=== PATIENT | female | born 1960 | race American Indian/Alaskan Native ===

== ENCOUNTER 2016-04-19 21:07 | Inpatient (IN) | payer MEDICAID ==
[2016-04-19 22:24] LABS: Basophils % (Auto) 1.9 % (0.0-1.8); Hematocrit 37.8 % (30.3-42.9); Mean Corpuscular HGB Conc 32 % (30-34); Mean Corpuscular Volume 76 fl (79-97); Platelet Count 413 K/mm3 (140-440); Red Blood Count 4.96 M/mm3 (3.65-5.03); Red Cell Distribution Width 17.6 % (13.2-15.2); White Blood Count 9.7 K/mm3 (4.5-11.0)
[2016-04-19 22:25] LABS: BUN/Creatinine Ratio 8.62; Calcium 9.2 mg/dL (8.4-10.2); Potassium 3.3 mmol/L (3.6-5.0)
[2016-04-19 22:29] LABS: Mean Corpuscular Hemoglobin 24 pg (28-32)
[2016-04-20] MEDS ORDERED: DUONEB 0.5 MG-3 MG/3 ML SOLN IH ONE ×2 (06:40→19:44)
--- NOTE | 2016-04-20 08:07 | Emergency Department Report ---
ED Shortness of Breath HPI - General Chief Complaint: Dyspnea/Respdistress Stated Complaint: SOB/CHILLS/HEART PT Time Seen by Provider: 04/20/16 08:04 Source: patient Mode of arrival: Ambulatory Limitations: No Limitations - History of Present Illness Initial Comments: Patient states that she's had some white productive sputum over the past 2 days. She denies chest pain. She complains of shortness of breath. She was given a neb here with some benefit. History of chronic renal failure. She states that she took her medicines but admitted that she did not take her Lasix yesterday her compliance is really uncertain in general. She denies any recent fever. As some dysuria and thinks she may have a UTI. MD Complaint: shortness of breath -: days(s) Improves With: nothing Worsens With: nothing Known History Of: COPD, congestive heart failure Context: recent URI Associated Symptoms: denies other symptoms, other (left leg edema and dysuria) - Related Data Home Oxygen Therapy: No Home Medications Medication Instructions Recorded Confirmed Last Taken Aspirin [Aspirin BABY CHEW TAB] 81 mg PO QHS 12/13/13 04/19/16 11/09/15 Cyclobenzaprine [Flexeril 10 MG 10 mg PO QHS 12/13/13 04/19/16 Unknown TAB] Nitroglycerin [Nitrostat] 0.4 mg SL Q5M PRN 12/13/13 04/19/16 Unknown Fluticasone/Salmeterol [Advair 250 puff PO BID 04/21/15 04/19/16 11/09/15 Diskus 250-50 mcg] Oxybutynin [Ditropan] 5 mg PO QDAY 04/21/15 04/19/16 11/10/15 cloNIDine [Catapres] 0.1 mg PO QDAY 04/21/15 04/19/16 11/10/15 cloNIDine [Catapres] 0.2 mg PO QHS 04/21/15 04/19/16 11/09/15 Montelukast [Singulair] 10 mg PO QPM 04/22/15 04/19/16 11/09/15 amLODIPine [Norvasc] 5 mg PO DAILY 04/22/15 04/19/16 11/10/15 Furosemide [Lasix TAB] 40 mg PO QHS 11/10/15 04/19/16 11/09/15 Potassium Chloride [K-Dur] 20 meq PO QHS 11/10/15 04/19/16 11/09/15 Previous Rx's Medication Instructions Recorded Last Taken Type hydrALAZINE [Apresoline TAB] 100 mg PO TID #90 tab 12/15/13 11/10/15 Rx ISOSORBIDE MONOnitrate [Imdur ER] 30 mg PO QDAY #30 tablet 04/25/15 11/10/15 Rx Metoprolol [Lopressor TAB] 50 mg PO BID #60 tablet 04/25/15 11/10/15 Rx Simvastatin [Zocor TAB] 40 mg PO QHS #30 tablet 04/25/15 11/09/15 Rx traMADol [Ultram] 50 mg PO Q6HR PRN #20 tablet 11/10/15 Unknown Rx Allergies Allergy/AdvReac Type Severity Reaction Status Date / Time No Known Allergies Allergy Unverified 08/30/13 18:56 ED Review of Systems ROS: Stated complaint: SOB/CHILLS/HEART PT Other details as noted in HPI Constitutional: denies: chills, fever Eyes: denies: eye pain, eye discharge, vision change ENT: denies: ear pain, throat pain Respiratory: cough, shortness of breath. denies: wheezing Cardiovascular: edema. denies: chest pain, palpitations Endocrine: no symptoms reported Gastrointestinal: denies: abdominal pain, nausea, diarrhea Genitourinary: denies: urgency, dysuria, discharge Musculoskeletal: denies: back pain, joint swelling, arthralgia Skin: denies: rash, lesions Neurological: denies: headache, weakness, paresthesias Psychiatric: denies: anxiety, depression Hematological/Lymphatic: denies: easy bleeding, easy bruising ED Past Medical Hx - Past Medical History Hx Hypertension: Yes Hx Congestive Heart Failure: Yes Hx Diabetes: No Hx Renal Disease: Yes Hx Asthma: Yes Hx COPD: No Additional medical history: CAD - Surgical History Additional Surgical History: Knee surgery - Social History Smoking Status: Former Smoker Substance Use Type: None - Medications Home Medications: Home Medications Medication Instructions Recorded Confirmed Last Taken Type Aspirin [Aspirin BABY CHEW TAB] 81 mg PO QHS 12/13/13 04/19/16 11/09/15 History Cyclobenzaprine [Flexeril 10 MG 10 mg PO QHS 12/13/13 04/19/16 Unknown History TAB] Nitroglycerin [Nitrostat] 0.4 mg SL Q5M PRN 12/13/13 04/19/16 Unknown History hydrALAZINE [Apresoline TAB] 100 mg PO TID #90 tab 12/15/13 04/19/16 11/10/15 Rx Fluticasone/Salmeterol [Advair 250 puff PO BID 04/21/15 04/19/16 11/09/15 History Diskus 250-50 mcg] Oxybutynin [Ditropan] 5 mg PO QDAY 04/21/15 04/19/16 11/10/15 History cloNIDine [Catapres] 0.1 mg PO QDAY 04/21/15 04/19/16 11/10/15 History cloNIDine [Catapres] 0.2 mg PO QHS 04/21/15 04/19/16 11/09/15 History Montelukast [Singulair] 10 mg PO QPM 04/22/15 04/19/16 11/09/15 History amLODIPine [Norvasc] 5 mg PO DAILY 04/22/15 04/19/16 11/10/15 History ISOSORBIDE MONOnitrate [Imdur ER] 30 mg PO QDAY #30 tablet 04/25/15 04/19/1605/22 Rx Metoprolol [Lopressor TAB] 50 mg PO BID #60 tablet 04/25/15 04/19/16 11/10/15 Rx Simvastatin [Zocor TAB] 40 mg PO QHS #30 tablet 04/25/15 04/19/16 11/09/15 Rx Furosemide [Lasix TAB] 40 mg PO QHS 11/10/15 04/19/16 11/09/15 History Potassium Chloride [K-Dur] 20 meq PO QHS 11/10/15 04/19/16 11/09/15 History traMADol [Ultram] 50 mg PO Q6HR PRN #20 tablet 11/10/15 04/19/16 Unknown Rx ED Physical Exam - General Limitations: No Limitations General appearance: obese (morbidly obese) - Head Head exam: Present: atraumatic - Eye Eye exam: Present: normal appearance - ENT ENT exam: Present: mucous membranes moist - Neck Neck exam: Present: normal inspection - Respiratory Respiratory exam: Present: decreased breath sounds. Absent: respiratory distress, accessory muscle use - Cardiovascular Cardiovascular Exam: Present: regular rate, normal rhythm. Absent: systolic murmur, diastolic murmur, rubs, gallop - GI/Abdominal GI/Abdominal exam: Present: soft, normal bowel sounds. Absent: distended, tenderness, guarding, rebound, rigid - Extremities Exam Extremities exam: Present: other (bilateral leg edema) - Back Exam Back exam: Present: normal inspection - Neurological Exam Neurological exam: Present: alert. Absent: CN II-XII intact, motor sensory deficit - Psychiatric Psychiatric exam: Present: normal affect, normal mood - Skin Skin exam: Present: warm, dry, intact, normal color. Absent: rash ED Course Vital Signs 04/19/16 04/20/16 04/20/16 21:33 06:13 06:46 Temperature 99.1 F 99.9 F H Pulse Rate 82 84 Pulse Rate [ 83 Anterior Bilateral Throughout] Respiratory 22 26 H 30 H Rate Respiratory 28 H Rate [Anterior Bilateral Throughout] Blood Pressure 199/112 Blood Pressure 163/89 [Left] O2 Sat by Pulse 95 96 Oximetry - Reevaluation(s) Reevaluation #1: Given Lasix, nitrates, potassium, aspirin. Discussed with Dr. Humphries. The patient will be admitted to the hospital service. 04/20/16 09:27 ED Medical Decision Making - Lab Data Result diagrams: 04/19/16 21:53 04/19/16 21:53 Laboratory Results - last 24 hr 04/19/16 04/19/16 21:53 21:53 WBC 9.7 RBC 4.96 Hgb 12.0 Hct 37.8 MCV 76 L MCH 24 L MCHC 32 RDW 17.6 H Plt Count 413 Lymph % (Auto) 5.1 L [place] % (Auto) 5.3 Eos % (Auto) 2.0 Baso % (Auto) 1.9 H Lymph # 0.5 L [place] # 0.5 Eos # 0.2 Baso # 0.2 H Seg Neutrophils % 85.7 H Seg Neutrophils # 8.4 H Sodium 143 Potassium 3.3 L Chloride 100.0 Carbon Dioxide 26 Anion Gap 20 BUN 25 H Creatinine 2.9 H Estimated GFR 20 BUN/Creatinine Ratio 8.62 Glucose 96 Calcium 9.2 Troponin T 0.020 - EKG Data -: EKG Interpreted by Me EKG shows normal: sinus rhythm Rate: normal - EKG Data When compared to previous EKG there are: no significant change Interpretation: LVH (associated changes) - Radiology Data interpreted by me: X-ray cardiomegaly and CHF. Critical care attestation.: If time is entered above; I have spent that time in minutes in the direct care of this critically ill patient, excluding procedure time. ED Disposition Clinical Impression: Asthma exacerbation, Chronic kidney disease, stage III (moderate), Poorly- controlled hypertension CHF (congestive heart failure) Qualifiers: Congestive heart failure type: combined Congestive heart failure chronicity: acute on chronic Qualified Code(s): I50.43 - Acute on chronic combined systolic (congestive) and diastolic (congestive) heart failure Disposition: OP ADMITTED IP TO THIS HOSP Is pt being admited?: Yes Does the pt Need Aspirin: Yes Condition: Stable Referrals: ELISE SOLORZANO MD [Primary Care Provider] - 3-5 Days Time of Disposition: 09:27
[2016-04-20] MEDS ORDERED: K-DUR PO ONE (08:46)
[2016-04-20] MEDS ORDERED: NITRO-BID 2% TP ONE (08:46)
[2016-04-20] MEDS ORDERED: LASIX IV ONE ×2 (08:46→16:43)
[2016-04-20] MEDS ORDERED: ASPIRIN PO ONE (08:47)
--- NOTE | 2016-04-20 09:14 | Admit Criteria Form ---
Admission Criteria Documentation: HEART FAILURE: COMMON COMPLICATIONS Clinical Indications for Inpatient Care (Place 'X' for any and all applicable criteria): Ongoing inpatient care may be indicated for heart failure with ANY ONE of the following (1)(2)(3)(4)(5): [ ]I. Ongoing need for care for primary condition requiring frequent therapy adjustments because of changes in cardiac function (eg, drug dosage changes for drugs that are renally metabolized) [ ]II. New-onset heart failure [ ]III. Heart failure with decreased urine output not responsive to attempts to optimize volume status [ ]IV. Acute cardiac ischemia causing or associated with failure [ X]V. Complications of heart failure, including ANY ONE of the following: [ ]a) Pericardial effusion [ ]b) Symptomatic pleural effusion [ ]c) O2 saturation <90% or PO2 < 60 mm Hg (8.0 kPa) on room air or require baseline supplemental O2 [ ]d) Tachypnea [X ]e) Dyspnea [ ]f) Syncope [ ]g) Change in mental status [ ]h) Acute renal insufficiency that is severe (reduction of more than 50% in estimated glomerular filtration rate from baseline) or progressive reduction of more than 25% in estimated glomerular filtration rate from baseline, with creatinine continuing to rise) [ ]i) Hemodynamic instability [ ]j) Anasarca [ ]k) Clinically significant metabolic abnormalities due to heart failure (eg, new-onset metabolic acidosis) Extended stay beyond goal length of stay for primary condition may be needed until ALL of the following are present(1)(3): [ ]a) Stable and effective diuretic regimen established (or patient on stable dialysis regimen if in chronic renal failure) [ ]b) Breathing comfortably at rest [ ]c) Saturation of arterial oxygen greater than 90% or at acceptable baseline [ ]d) Pulmonary edema absent or improved [ ]e) Hemodynamic stability [ ]f) Volume status acceptable on oral medication [ ]g) Peripheral or sacral edema absent or improved [ ]h) Renal function stable and manageable at a lower level of care [ ]i) Complications (eg, pleural effusion) resolved or manageable at a lower level of care [ ]j) Patient or caregiver has received written discharge instructions or educational material addressing activity level, diet, discharge medications, follow-up appointment, weight monitoring, and what to do if symptoms worsen The original [facility] [employer] content created by [employer] has been revised. The portions of the content which have been revised are identified through the use of italic text or in bold, and [facility] has neither reviewed nor approved the modified material.All other unmodified content is copyright [facility]. Please see references footnoted in the original [facility] edition 2016
--- NOTE | 2016-04-20 09:33 | XRay Report ---
CHEST TWO VIEWS: 04/19/16 21:07:00 CLINICAL: Shortness of breath. COMPARISON: 04/20/15 FINDINGS: Cardiomegaly and central vascular congestion. The lungs are normally expanded and clear. The bones and soft tissues are normal. IMPRESSION: Cardiomegaly and pulmonary venous hypertension.No pulmonary edema.
[2016-04-20] MEDS ORDERED: MILK OF MAGNESIA PO PRN (10:14)
[2016-04-20] MEDS ORDERED: ZOFRAN IV PRN (10:14)
[2016-04-20] MEDS ORDERED: DULCOLAX PR PRN (10:14)
[2016-04-20] MEDS ORDERED: ULTRAM PO PRN (10:18)
[2016-04-20] MEDS ORDERED: NITROSTAT SL PRN (10:18)
--- NOTE | 2016-04-20 10:26 | History and Physical Report ---
History of Present Illness Date of examination: 04/20/16 Date of admission: 11-18-16 Chief complaint: sob and cough History of present illness: Patient is a 55-year-old female with a past medical history including hypertension, congestive heart failure, coronary artery disease, asthma, hyperlipidemia, morbid obesity, sleep apnea, visits with a 5 day history of shortness of breath and productive cough and wheezing. Patient states symptoms have been progressively getting worse over the last 3 days. Associated with low -grade fever and pursed lip breathing. Patient at present is unaware of any recent trigger. She denies any immediate sick contacts but has been near possible sick contacts in her work environment. Patient state he begin to get more more short of breath and decided to come to the ED. Once patient arrived in the ED she felt better with oxygen and nebulizers. Patient was noted to have malignant hypertension with blood pressure 190/120 upon presentation. She denied any chest pain. He did complain of dyspnea on exertion. Painful cough. Productive cough. Arthralgia and myalgias low-grade fever. Past History Past Medical History: arthritis, heart failure, hypertension Social history: single, lives with family, full code. denies: smoking, alcohol abuse, prescription drug abuse Family history: diabetes, hypertension Medications and Allergies Allergies Allergy/AdvReac Type Severity Reaction Status Date / Time No Known Allergies Allergy Unverified 08/30/13 18:56 Home Medications Medication Instructions Recorded Confirmed Last Taken Type Aspirin [Aspirin BABY CHEW TAB] 81 mg PO QHS 12/13/13 04/19/16 11/09/15 History Cyclobenzaprine [Flexeril 10 MG 10 mg PO QHS 12/13/13 04/19/16 Unknown History TAB] Nitroglycerin [Nitrostat] 0.4 mg SL Q5M PRN 12/13/13 04/19/16 Unknown History hydrALAZINE [Apresoline TAB] 100 mg PO TID #90 tab 12/15/13 04/19/16 11/10/15 Rx Fluticasone/Salmeterol [Advair 250 puff PO BID 04/21/15 04/19/16 11/09/15 History Diskus 250-50 mcg] Oxybutynin [Ditropan] 5 mg PO QDAY 04/21/15 04/19/16 11/10/15 History cloNIDine [Catapres] 0.1 mg PO QDAY 04/21/15 04/19/16 11/10/15 History cloNIDine [Catapres] 0.2 mg PO QHS 04/21/15 04/19/16 11/09/15 History Montelukast [Singulair] 10 mg PO QPM 04/22/15 04/19/16 11/09/15 History amLODIPine [Norvasc] 5 mg PO DAILY 04/22/15 04/19/16 11/10/15 History ISOSORBIDE MONOnitrate [Imdur ER] 30 mg PO QDAY #30 tablet 04/25/15 04/19/1605/22 Rx Metoprolol [Lopressor TAB] 50 mg PO BID #60 tablet 04/25/15 04/19/16 11/10/15 Rx Simvastatin [Zocor TAB] 40 mg PO QHS #30 tablet 04/25/15 04/19/16 11/09/15 Rx Furosemide [Lasix TAB] 40 mg PO QHS 11/10/15 04/19/16 11/09/15 History Potassium Chloride [K-Dur] 20 meq PO QHS 11/10/15 04/19/16 11/09/15 History traMADol [Ultram] 50 mg PO Q6HR PRN #20 tablet 11/10/15 04/19/16 Unknown Rx Active Meds: Active Medications Acetaminophen (Tylenol) 650 mg PO Q4H PRN PRN Reason: Pain MILD(1-3)/Fever >100.5/MURPHY Amlodipine Besylate (Norvasc) 5 mg PO DAILY [facility] Aspirin (Baby Aspirin) 81 mg PO QHS [facility] Bisacodyl (Dulcolax) 10 mg PA QDAY PRN PRN Reason: Constipation unrelieved by MOM Azithromycin 500 mg/ Sodium (Chloride) 250 mls @ 250 mls/hr IV Q24HR [facility] Review of Systems Constitutional: fever, chills, sweats, night sweats, weakness, malaise, no weight loss, no weight gain, no anorexia, no fatigue, no lethargy, no chronic headaches, no poor appetite, no daytime sleepiness, no chronic pain Ears, nose, mouth and throat: no deferred, no ear discharge, no tinnitis, no nose pain, no nasal discharge, no bleeding gums, no dental pain, no sore throat , no swelling in throat, no voice changes, no post-nasal drip, no headache, no vertigo, no neck fullness/pressure, no neck lump Breasts: deferred Cardiovascular: shortness of breath, dyspnea on exertion, high blood pressure, leg edema, no chest pain, no orthopnea, no palpitations, no rapid/irregular heart beat, no edema, no syncope, no paroxysmal nocturnal dyspnea, no claudication, no phlebitis, no decreased exercise tolerance Respiratory: cough, cough with sputum, shortness of breath, dyspnea on exertion , wheezing, pain on inspiration, sleep apnea, no excessive sputum, no hemoptysis , no congestion, no pleurisy, no pain, no snoring, no respiratory infections, no home oxygen Gastrointestinal: no abdominal pain, no nausea, no vomiting, no constipation, no hematemesis, no melena, no loss of appetite, no early satiety, no jaundice, no dyspepsia/bloating, no lactose intolerance, no other Genitourinary Female: no dysuria, no urinary frequency, no urgency, no post void dribbling, no incomplete emptying, no nocturia, no vaginal discharge, no vaginal odor, no abnormal vaginal bleeding, no vaginal dryness, no mood problems , no prolapse symptoms Menstruation: no post hysterectomy Rectal: incontinence, no pain Musculoskeletal: muscle weakness, myalgias, no neck stiffness, no neck pain, no shooting arm pain, no arm numbness/tingling, no shooting leg pain, no hot joints , no morning stiffness, no limitation of motion, no frequent falls Integumentary: no deferred, no pruritis, no growths, no bullae, no unusual bruising, no foot/leg ulcers Neurological: no paralysis, no tingling, no tremors, no migraines, no aphasia, no changes in smell/taste, no motor disturbance, no sensory deficit, no hearing difficulties, no paralysis, no other Psychiatric: no change in sleep habits, no hypersomnia, no suicidal ideation, no depression, no hopelessness, no anxiety attacks, no mood swings Endocrine: no polyphagia, no nocturia, no high blood sugars, no low blood sugars Hematologic/Lymphatic: no easy bruising, no easy bleeding, no lymphadenopathy, no thrombophilia Allergic/Immunologic: no urticaria, no angioedema, no seasonal allergies Exam - Constitutional Vitals: Temp Pulse Resp BP Pulse Ox 99.9 F H 90 28 H 136/99 96 04/20/16 06:13 04/20/16 09:35 04/20/16 06:46 04/20/16 09:35 04/20/16 06:13 General appearance: Present: mild distress - EENT Eyes: Present: PERRL, EOM intact ENT: hearing intact, clear oral mucosa, dentition normal, oropharyngeal erythema , no poor dentition, no thrush, no ulcerations - Neck Neck: Present: supple, normal ROM - Respiratory Respiratory: bilateral: diminished, rales - Cardiovascular Rhythm: regular Heart Sounds: Present: S1 & S2, gallop - Extremities Extremities: no ischemia, pulses intact, pulses symmetrical, No edema, normal temperature, normal color, Full ROM Peripheral Pulses: within normal limits - Abdominal General gastrointestinal: Present: soft, non-tender, non-distended, other (obese ) - Integumentary Integumentary: Present: clear, warm, dry - Musculoskeletal Musculoskeletal: gait normal, strength equal bilaterally - Psychiatric Psychiatric: appropriate mood/affect, intact judgment & insight - Neurologic Neurologic: CNII-XII intact, moves all extremities Results - Labs CBC & Chem 7: 04/19/16 21:53 04/19/16 21:53 Labs: Laboratory Last Values WBC 9.7 K/mm3 (4.5-11.0) 04/19/16 21:53 RBC 4.96 M/mm3 (3.65-5.03) 04/19/16 21:53 Hgb 12.0 gm/dl (10.1-14.3) 04/19/16 21:53 Hct 37.8 % (30.3-42.9) 04/19/16 21:53 MCV 76 fl (79-97) L 04/19/16 21:53 MCH 24 pg (28-32) L 04/19/16 21:53 MCHC 32 % (30-34) 04/19/16 21:53 RDW 17.6 % (13.2-15.2) H 04/19/16 21:53 Plt Count 413 K/mm3 (140-440) 04/19/16 21:53 Lymph % (Auto) 5.1 % (13.4-35.0) L 04/19/16 21:53 [place] % (Auto) 5.3 % (0.0-7.3) 04/19/16 21:53 Eos % (Auto) 2.0 % (0.0-4.3) 04/19/16 21:53 Baso % (Auto) 1.9 % (0.0-1.8) H 04/19/16 21:53 Lymph # 0.5 K/mm3 (1.2-5.4) L 04/19/16 21:53 [place] # 0.5 K/mm3 (0.0-0.8) 04/19/16 21:53 Eos # 0.2 K/mm3 (0.0-0.4) 04/19/16 21:53 Baso # 0.2 K/mm3 (0.0-0.1) H 04/19/16 21:53 Seg Neutrophils % 85.7 % (40.0-70.0) H 04/19/16 21:53 Seg Neutrophils # 8.4 K/mm3 (1.8-7.7) H 04/19/16 21:53 Sodium 143 mmol/L (137-145) 04/19/16 21:53 Potassium 3.3 mmol/L (3.6-5.0) L 04/19/16 21:53 Chloride 100.0 mmol/L (98-107) 04/19/16 21:53 Carbon Dioxide 26 mmol/L (22-30) 04/19/16 21:53 Anion Gap 20 mmol/L 04/19/16 21:53 BUN 25 mg/dL (7-17) H 04/19/16 21:53 Creatinine 2.9 mg/dL (0.7-1.2) H 04/19/16 21:53 Estimated GFR 20 ml/min 04/19/16 21:53 BUN/Creatinine Ratio 8.62 % 04/19/16 21:53 Glucose 96 mg/dL (65-100) 04/19/16 21:53 Calcium 9.2 mg/dL (8.4-10.2) 04/19/16 21:53 Troponin T 0.020 ng/mL (0.00-0.029) 04/19/16 21:53 - Imaging and Cardiology EKG: image reviewed Chest x-ray: image reviewed Assessment and Plan Advance Directives: Yes VTE prophylaxis?: Chemical Plan of care discussed with patient/family: Yes - Patient Problems (1) UTI (urinary tract infection) Current Visit: Yes Status: Acute Qualifiers: Urinary tract infection type: U Hematuria presence: H Indwelling urinary catheter type: I Encounter type: E Plan to address problem: Patient has symptoms of burning with urination. Can be treated with anabiotic used to treat acute bronchitis. Obtain UA micral. (2) Asthma exacerbation Current Visit: Yes Status: Acute (3) Poorly-controlled hypertension Current Visit: Yes Status: Acute Plan to address problem: Patient presents with malignant hypertension some of this was most likely secondary to her acute event being short of breath and had dyspnea on exertion. Responded to current treatment with IV/by mouth antihypertensives will use amlodipine and clonidine and daytime. Add additional hydralazine as well. Titrate medications accordingly. Patient denied any chest pain any headaches besides pleuritic chest pain. (4) Chronic kidney disease, stage III (moderate) Current Visit: Yes Status: Chronic Plan to address problem: Patient will chronic kidney disease stage III at present close to baseline. We' ll avoid NSAIDs. Avoid nephrotoxic agents. Avoid more aggressive diuresis at this particular time after reviewing chest x-ray patient does not appear to be in acute congestive heart failure this particular time. In physical exam is consistent with asthma/pneumonia/bronchitis and not congestive heart failure as the reason for her acute respiratory failure. (5) Acute on chronic diastolic heart failure Current Visit: No Status: Acute Plan to address problem: Stable patient has diastolic heart failure with stable at this point we'll continue current Lasix dose by mouth. (6) Hypokalemia Current Visit: Yes Status: Acute Plan to address problem: Hyperkalemia secondary to diaphoretic use. We'll replace by mouth at this particular time. (7) Pneumonia Current Visit: Yes Status: Acute Qualifiers: Pneumonia type: P Aspiration pneumonia type: A Laterality: L Lung location: unspecified part of lung Plan to address problem: She'll with acute pneumonia versus acute bronchitis wheezing low-grade fever thick productive sputum. Patient has morbid obesity so very difficult to have a good exam of the air entry. Especially with the amount of wheezing. We'll treat with azithromycin daily add blood cultures. We'll also treat Solu-Medrol 40 mg IV every 12 and DuoNeb's. And oxygen 2 L nasal cannula. (8) Acute respiratory failure Current Visit: Yes Status: Acute Qualifiers: Respiratory failure complication: hypoxia Qualified Code(s): J96.01 - Acute respiratory failure with hypoxia Plan to address problem: Approximately acute respiratory failure secondary to asthma exacerbation. Symptoms also probably exacerbated by obesity hypoventilation syndrome and sleep apnea. Can be worked up as outpatient. Would treat asthma aggressively as mentioned in pneumonia/bronchitis.
[2016-04-20] MEDS ORDERED: PHENERGAN/CODEINE 6.25-10 MG/5ML PO NR (10:41)
[2016-04-20] MEDS ORDERED: CATAPRES PO SCH ×2 (11:00→22:00)
[2016-04-20] MEDS: LOVENOX SUB-Q SCH (11:53)
[2016-04-20] MEDS: ZITHROMAX 500 MG in NACL 0.9% 250ML 250 ML IV SCH (11:53)
[2016-04-20] MEDS: CATAPRES PO SCH ×2 (11:53→21:58)
[2016-04-20] MEDS: NORVASC PO SCH (11:53)
[2016-04-20] MEDS: IMDUR PO SCH (14:10)
[2016-04-20] MEDS: LOPRESSOR PO SCH ×2 (14:11→21:59)
[2016-04-20] MEDS: APRESOLINE PO SCH ×2 (14:11→21:58)
[2016-04-20] MEDS: DUONEB 0.5 MG-3 MG/3 ML SOLN IH SCH ×2 (14:12→20:06)
[2016-04-20 14:21] LABS: Bacteria,Urine 1+ /HPF (Negative); Bilirubin,Urine NEG (Negative); Blood,Urine SM (Negative); Ketones,Urine NEG (Negative); Leukocyte Esterase,Urine SM (Negative); Mucus,Urine FEW /HPF; Nitrite,Urine POS (Negative); Urobilinogen,Urine < 2.0 mg/dL (<2.0)
[2016-04-20 14:22] LABS: Protein,Urine >500 mg/dL (Negative)
[2016-04-20] MEDS: PROVENTIL IH PRN (16:45)
[2016-04-20] MEDS: TYLENOL PO PRN (17:24)
[2016-04-20] MEDS: K-DUR PO SCH (21:59)
[2016-04-20] MEDS: FLEXERIL PO SCH (21:59)
[2016-04-20] MEDS: BABY ASPIRIN PO SCH (21:59)
[2016-04-20] MEDS: ZOCOR PO SCH (21:59)
[2016-04-20] MEDS ORDERED: LASIX PO SCH (22:00)
[2016-04-21] MEDS: FLEXERIL PO SCH ×2 (01:20→21:26)
[2016-04-21] MEDS: DUONEB 0.5 MG-3 MG/3 ML SOLN IH SCH ×4 (01:43→20:45)
[2016-04-21 05:38] LABS: Albumin 3.6 g/dL (3.9-5); Albumin/Globulin Ratio 1.2 %; Bilirubin,Total 0.2 mg/dL (0.1-1.2); Calcium 9.1 mg/dL (8.4-10.2); Potassium 3.5 mmol/L (3.6-5.0); Total Protein 6.7 g/dL (6.3-8.2)
[2016-04-21] MEDS: PROVENTIL IH PRN (05:39)
[2016-04-21] MEDS: CATAPRES PO SCH ×2 (10:35→21:26)
[2016-04-21] MEDS: APRESOLINE PO SCH ×3 (10:35→21:27)
[2016-04-21] MEDS: LOPRESSOR PO SCH ×2 (10:36→21:27)
[2016-04-21] MEDS: IMDUR PO SCH (10:36)
[2016-04-21] MEDS: LOVENOX SUB-Q SCH (10:37)
[2016-04-21] MEDS: NORVASC PO SCH (10:37)
[2016-04-21] MEDS: TYLENOL PO PRN (10:46)
--- NOTE | 2016-04-21 11:41 | Progress Note ---
Assessment and Plan - Patient Problems (1) UTI (urinary tract infection) Current Visit: Yes Status: Acute Qualifiers: Urinary tract infection type: U Hematuria presence: H Indwelling urinary catheter type: I Encounter type: E Plan to address problem: Continue treatment for acute cystitis. Patient's dysuria has resolved. Continue current anabiotic coverage. Blood cultures so far. Growth no growth (2) Asthma exacerbation Current Visit: Yes Status: Acute Plan to address problem: Improve somewhat however not substantially. We'll increase still reports increased Solu-Medrol. We'll also give medication for back pain. Team present anabiotic coverage. Continue current nebulizes and O2. Continue supportive care. (3) Poorly-controlled hypertension Current Visit: Yes Status: Acute Plan to address problem: Patient presents with malignant hypertension some of this was most likely secondary to her acute event being short of breath and had dyspnea on exertion. Responded to current treatment with IV/by mouth antihypertensives will use amlodipine and clonidine and daytime. Add additional hydralazine as well. Titrate medications accordingly. Patient denied any chest pain any headaches besides pleuritic chest pain. (4) Chronic kidney disease, stage III (moderate) Current Visit: Yes Status: Chronic Plan to address problem: Patient will chronic kidney disease stage III at present close to baseline. We' ll avoid NSAIDs. Avoid nephrotoxic agents. Avoid more aggressive diuresis at this particular time after reviewing chest x-ray patient does not appear to be in acute congestive heart failure this particular time. In physical exam is consistent with asthma/pneumonia/bronchitis and not congestive heart failure as the reason for her acute respiratory failure. We'll start a gentle rehydration. And avoid aggressive diuresis. (5) Acute on chronic diastolic heart failure Current Visit: No Status: Acute Plan to address problem: Stable patient has diastolic heart failure with stable at this point we'll continue current Lasix dose by mouth. (6) Hypokalemia Current Visit: Yes Status: Acute Plan to address problem: Hyperkalemia secondary to diaphoretic use. We'll replace by mouth at this particular time. (7) Pneumonia Current Visit: Yes Status: Acute Qualifiers: Pneumonia type: P Aspiration pneumonia type: A Laterality: L Lung location: unspecified part of lung Plan to address problem: Patient no clear evidence of pneumonia deftly has acute bronchitis with infectious process from significant productive cough. Wheezing. This is most likely etiology. (8) Acute respiratory failure Current Visit: Yes Status: Acute Qualifiers: Respiratory failure complication: hypoxia Qualified Code(s): J96.01 - Acute respiratory failure with hypoxia Plan to address problem: Approximately acute respiratory failure secondary to asthma exacerbation. Symptoms also probably exacerbated by obesity hypoventilation syndrome and sleep apnea. Can be worked up as outpatient. Would treat asthma aggressively as mentioned in pneumonia/bronchitis. History Interval history: Ms. Perez states she now has back pain from coughing and needs something for pain. She states she feels much better than she did yesterday. Still has significant wheezing. Still requires O2. Patient states she does not use O2 at home. Hospitalist Physical - Constitutional Vitals: Temp Pulse Resp BP Pulse Ox 99.4 F 81 20 190/86 93 04/21/16 08:36 04/21/16 08:36 04/21/16 08:36 04/21/16 08:36 04/21/16 08:36 General appearance: Present: no acute distress - EENT Eyes: Present: PERRL, EOM intact ENT: hearing intact, clear oral mucosa, dentition normal - Neck Neck: Present: supple, normal ROM. Absent: enlarged thyroid, masses or JVD - Respiratory Respiratory effort: normal Respiratory: bilateral: rales, wheezing (significant wheezing but improved from yesterday.) - Cardiovascular Rhythm: regular Heart Sounds: Present: S1 & S2 - Extremities Extremities: no ischemia, pulses symmetrical, No edema Extremity abnormal: other Peripheral Pulses: within normal limits - Abdominal General gastrointestinal: soft, non-tender, non-distended, normal bowel sounds, other (obese) - Integumentary Integumentary: Present: clear, warm, dry - Psychiatric Psychiatric: appropriate mood/affect, intact judgment & insight, cooperative - Neurologic Neurologic: CNII-XII intact, no focal deficits, moves all extremities Results - Labs CBC & Chem 7: 04/19/16 21:53 04/21/16 05:06 Labs: Laboratory Last Values WBC 9.7 K/mm3 (4.5-11.0) 04/19/16 21:53 RBC 4.96 M/mm3 (3.65-5.03) 04/19/16 21:53 Hgb 12.0 gm/dl (10.1-14.3) 04/19/16 21:53 Hct 37.8 % (30.3-42.9) 04/19/16 21:53 MCV 76 fl (79-97) L 04/19/16 21:53 MCH 24 pg (28-32) L 04/19/16 21:53 MCHC 32 % (30-34) 04/19/16 21:53 RDW 17.6 % (13.2-15.2) H 04/19/16 21:53 Plt Count 413 K/mm3 (140-440) 04/19/16 21:53 Lymph % (Auto) 5.1 % (13.4-35.0) L 04/19/16 21:53 [place] % (Auto) 5.3 % (0.0-7.3) 04/19/16 21:53 Eos % (Auto) 2.0 % (0.0-4.3) 04/19/16 21:53 Baso % (Auto) 1.9 % (0.0-1.8) H 04/19/16 21:53 Lymph # 0.5 K/mm3 (1.2-5.4) L 04/19/16 21:53 [place] # 0.5 K/mm3 (0.0-0.8) 04/19/16 21:53 Eos # 0.2 K/mm3 (0.0-0.4) 04/19/16 21:53 Baso # 0.2 K/mm3 (0.0-0.1) H 04/19/16 21:53 Seg Neutrophils % 85.7 % (40.0-70.0) H 04/19/16 21:53 Seg Neutrophils # 8.4 K/mm3 (1.8-7.7) H 04/19/16 21:53 Sodium 143 mmol/L (137-145) 04/21/16 05:06 Potassium 3.5 mmol/L (3.6-5.0) L 04/21/16 05:06 Chloride 101.0 mmol/L (98-107) 04/21/16 05:06 Carbon Dioxide 27 mmol/L (22-30) 04/21/16 05:06 Anion Gap 19 mmol/L 04/21/16 05:06 BUN 34 mg/dL (7-17) H 04/21/16 05:06 Creatinine 3.4 mg/dL (0.7-1.2) H 04/21/16 05:06 Estimated GFR 17 ml/min 04/21/16 05:06 BUN/Creatinine Ratio 10.00 % 04/21/16 05:06 Glucose 102 mg/dL (65-100) H 04/21/16 05:06 Calcium 9.1 mg/dL (8.4-10.2) 04/21/16 05:06 Total Bilirubin 0.2 mg/dL (0.1-1.2) 04/21/16 05:06 AST 25 units/L (5-40) 04/21/16 05:06 ALT 12 units/L (7-56) 04/21/16 05:06 Alkaline Phosphatase 103 units/L (35-129) 04/21/16 05:06 Troponin T 0.020 ng/mL (0.00-0.029) 04/19/16 21:53 Total Protein 6.7 g/dL (6.3-8.2) 04/21/16 05:06 Albumin 3.6 g/dL (3.9-5) L 04/21/16 05:06 Albumin/Globulin Ratio 1.2 % 04/21/16 05:06 Urine Color Yellow (Yellow) 04/20/16 13:45 Urine Turbidity Clear (Clear) 04/20/16 13:45 Urine pH 6.0 (5.0-7.0) 04/20/16 13:45 Ur Specific [place] 1.007 (1.003-1.030) 04/20/16 13:45 Urine Protein >500 mg/dL (Negative) 04/20/16 13:45 Urine Glucose (UA) Neg mg/dL (Negative) 04/20/16 13:45 Urine Ketones Neg mg/dL (Negative) 04/20/16 13:45 Urine Blood Sm (Negative) 04/20/16 13:45 Urine Nitrite Pos (Negative) 04/20/16 13:45 Urine Bilirubin Neg (Negative) 04/20/16 13:45 Urine Urobilinogen < 2.0 mg/dL (<2.0) 04/20/16 13:45 Ur Leukocyte Esterase Sm (Negative) 04/20/16 13:45 Urine WBC (Auto) 14.0 /HPF (0.0-6.0) H 04/20/16 13:45 Urine RBC (Auto) 4.0 /HPF (0.0-6.0) 04/20/16 13:45 U Epithel Cells (Auto) 2.0 /HPF (0-13.0) 04/20/16 13:45 Urine Bacteria (Auto) 1+ /HPF (Negative) 04/20/16 13:45 Urine Mucus Few /HPF 04/20/16 13:45 - Imaging and Cardiology Chest x-ray: image reviewed
[2016-04-21] MEDS ORDERED: FLUARIX QUAD 2016-2017(36 MOS+) IM ONE (12:00)
[2016-04-21] MEDS: ZITHROMAX 500 MG in NACL 0.9% 250ML 250 ML IV SCH (15:08)
[2016-04-21] MEDS: PERCOCET 5/325 PO PRN (15:08)
[2016-04-21] MEDS ORDERED: LASIX IV ONE (16:35)
[2016-04-21] MEDS: BABY ASPIRIN PO SCH (21:26)
[2016-04-21] MEDS: ZOCOR PO SCH (21:27)
[2016-04-21] MEDS: K-DUR PO SCH (21:27)
[2016-04-22] MEDS: DUONEB 0.5 MG-3 MG/3 ML SOLN IH SCH ×4 (02:19→20:39)
[2016-04-22] MEDS: APRESOLINE PO SCH ×3 (08:02→21:23)
[2016-04-22 08:25] LABS: BUN/Creatinine Ratio 11.86; Calcium 9.3 mg/dL (8.4-10.2); Chloride 100.6 mmol/L (98-107); Potassium 3.7 mmol/L (3.6-5.0)
[2016-04-22] MEDS: IMDUR PO SCH ×2 (10:36→17:56)
[2016-04-22] MEDS: LOPRESSOR PO SCH (10:37)
[2016-04-22] MEDS: NORVASC PO SCH (10:37)
[2016-04-22] MEDS: BABY ASPIRIN PO SCH ×2 (10:37→21:44)
[2016-04-22] MEDS: CATAPRES PO SCH ×2 (10:37→21:23)
[2016-04-22] MEDS ORDERED: NORVASC PO SCH (14:51)
--- NOTE | 2016-04-22 14:52 | Progress Note ---
Assessment and Plan Assessment and plan: 55-year-old woman who presented with acute shortness of breath and hypoxic respiratory failure and 1. Acute exacerbation of asthma/COPD Continue steroids, antibiotics, continue breathing treatments, we'll taper steroid dose today Of note it was previously stated the patient had pneumonia of new chest x-rays negative for pneumonia has been ruled out 2. Gram negative UTI continue abx 3. Hypertension Continue home meds 4. CKD Avoid nephrotoxic agents 5. Acute exacerbation of CHF Continue IV Lasix 6. Acute hypoxic respiratory failure Patient has now been successfully weaned off supplemental oxygen improving 7. Hypokalemia resolved with repletion 8. Uncontrolled htn optimize meds History Interval history: she continue to complain of cough, SOB is improved, dysuria is improved Hospitalist Physical - Physical exam Narrative exam: General: Patient appears well in no distress HEENT: MMM, EOMI cardiac: S1-S2 heard lungs: decreased air entry, and late expiratory wheeze abdomen: soft, nontender, nondistended bowel sounds positive extremities: no edema clubbing or cyanosis Skin: no rash or lesion Neuro: no focal deficit Psych: appropriate behavior and mood, cognition intact - Constitutional Vitals: Temp Pulse Resp BP Pulse Ox 97.0 F L 79 18 176/81 94 04/22/16 13:31 04/22/16 13:31 04/22/16 13:31 04/22/16 13:31 04/22/16 13:31 General appearance: Present: no acute distress Results - Labs CBC & Chem 7: 04/19/16 21:53 04/22/16 07:38 Labs: Laboratory Last Values WBC 9.7 K/mm3 (4.5-11.0) 04/19/16 21:53 RBC 4.96 M/mm3 (3.65-5.03) 04/19/16 21:53 Hgb 12.0 gm/dl (10.1-14.3) 04/19/16 21:53 Hct 37.8 % (30.3-42.9) 04/19/16 21:53 MCV 76 fl (79-97) L 04/19/16 21:53 MCH 24 pg (28-32) L 04/19/16 21:53 MCHC 32 % (30-34) 04/19/16 21:53 RDW 17.6 % (13.2-15.2) H 04/19/16 21:53 Plt Count 413 K/mm3 (140-440) 04/19/16 21:53 Lymph % (Auto) 5.1 % (13.4-35.0) L 04/19/16 21:53 [place] % (Auto) 5.3 % (0.0-7.3) 04/19/16 21:53 Eos % (Auto) 2.0 % (0.0-4.3) 04/19/16 21:53 Baso % (Auto) 1.9 % (0.0-1.8) H 04/19/16 21:53 Lymph # 0.5 K/mm3 (1.2-5.4) L 04/19/16 21:53 [place] # 0.5 K/mm3 (0.0-0.8) 04/19/16 21:53 Eos # 0.2 K/mm3 (0.0-0.4) 04/19/16 21:53 Baso # 0.2 K/mm3 (0.0-0.1) H 04/19/16 21:53 Seg Neutrophils % 85.7 % (40.0-70.0) H 04/19/16 21:53 Seg Neutrophils # 8.4 K/mm3 (1.8-7.7) H 04/19/16 21:53 Sodium 141 mmol/L (137-145) 04/22/16 07:38 Potassium 3.7 mmol/L (3.6-5.0) 04/22/16 07:38 Chloride 100.6 mmol/L (98-107) 04/22/16 07:38 Carbon Dioxide 23 mmol/L (22-30) 04/22/16 07:38 Anion Gap 21 mmol/L 04/22/16 07:38 BUN 51 mg/dL (7-17) H 04/22/16 07:38 Creatinine 4.3 mg/dL (0.7-1.2) H 04/22/16 07:38 Estimated GFR 13 ml/min 04/22/16 07:38 BUN/Creatinine Ratio 11.86 % 04/22/16 07:38 Glucose 148 mg/dL (65-100) H 04/22/16 07:38 Calcium 9.3 mg/dL (8.4-10.2) 04/22/16 07:38 Total Bilirubin 0.2 mg/dL (0.1-1.2) 04/21/16 05:06 AST 25 units/L (5-40) 04/21/16 05:06 ALT 12 units/L (7-56) 04/21/16 05:06 Alkaline Phosphatase 103 units/L (35-129) 04/21/16 05:06 Troponin T 0.020 ng/mL (0.00-0.029) 04/19/16 21:53 Total Protein 6.7 g/dL (6.3-8.2) 04/21/16 05:06 Albumin 3.6 g/dL (3.9-5) L 04/21/16 05:06 Albumin/Globulin Ratio 1.2 % 04/21/16 05:06 Urine Color Yellow (Yellow) 04/20/16 13:45 Urine Turbidity Clear (Clear) 04/20/16 13:45 Urine pH 6.0 (5.0-7.0) 04/20/16 13:45 Ur Specific [place] 1.007 (1.003-1.030) 04/20/16 13:45 Urine Protein >500 mg/dL (Negative) 04/20/16 13:45 Urine Glucose (UA) Neg mg/dL (Negative) 04/20/16 13:45 Urine Ketones Neg mg/dL (Negative) 04/20/16 13:45 Urine Blood Sm (Negative) 04/20/16 13:45 Urine Nitrite Pos (Negative) 04/20/16 13:45 Urine Bilirubin Neg (Negative) 04/20/16 13:45 Urine Urobilinogen < 2.0 mg/dL (<2.0) 04/20/16 13:45 Ur Leukocyte Esterase Sm (Negative) 04/20/16 13:45 Urine WBC (Auto) 14.0 /HPF (0.0-6.0) H 04/20/16 13:45 Urine RBC (Auto) 4.0 /HPF (0.0-6.0) 04/20/16 13:45 U Epithel Cells (Auto) 2.0 /HPF (0-13.0) 04/20/16 13:45 Urine Bacteria (Auto) 1+ /HPF (Negative) 04/20/16 13:45 Urine Mucus Few /HPF 04/20/16 13:45
[2016-04-22] MEDS: PERCOCET 5/325 PO PRN ×2 (14:55→21:24)
[2016-04-22] MEDS ORDERED: LASIX IV SCH (15:00)
[2016-04-22] MEDS: ZITHROMAX 500 MG in NACL 0.9% 250ML 250 ML IV SCH (17:51)
[2016-04-22] MEDS: SINGULAIR PO SCH ×2 (17:57→18:03)
[2016-04-22] MEDS ORDERED: ROBITUSSIN DM PO PRN (17:58)
[2016-04-22] MEDS: LOVENOX SUB-Q SCH (18:04)
[2016-04-22] MEDS: COREG PO SCH (21:24)
[2016-04-22] MEDS: ZOCOR PO SCH (21:24)
[2016-04-22] MEDS: FLEXERIL PO SCH (21:24)
[2016-04-22] MEDS: K-DUR PO SCH (21:27)
[2016-04-23] MEDS: DUONEB 0.5 MG-3 MG/3 ML SOLN IH SCH ×3 (02:12→14:22)
[2016-04-23] MEDS: APRESOLINE PO SCH ×2 (08:13→15:39)
[2016-04-23] MEDS: LOVENOX SUB-Q SCH (09:19)
[2016-04-23] MEDS: COREG PO SCH (09:19)
[2016-04-23] MEDS: IMDUR PO SCH (09:19)
[2016-04-23] MEDS: CATAPRES PO SCH (09:20)
[2016-04-23] MEDS ORDERED: NORVASC PO SCH (10:00)
[2016-04-23] MEDS: ZITHROMAX 500 MG in NACL 0.9% 250ML 250 ML IV SCH (10:53)
--- NOTE | 2016-04-23 13:34 | Discharge Summary ---
Providers - Providers Date of Admission: 04/20/16 10:14 Attending physician: CA VELÁZQUEZ MD Primary care physician: ELISE SOLORZANO Hospitalization Condition: Stable Hospital course: 55-year-old woman who presented with acute shortness of breath and hypoxic respiratory failure, she was treated with IV antibiotics, nebulizer, steroids and oxygen supplementation, she was then weaned of oxygen she clinically improved. For UTI she was treated with antibiotics, she also had some fluid overload for which she received IV Lasix, she'll continue the rest of her cardiac medications, patient clinically improved and was sent home in improved condition Discharge diagnoses 1. Acute exacerbation of asthma/COPD Treated as stated above 2. UTI Received antibiotics 3. Hypertension Continue home meds 4. CK D Avoid nephrotoxic agents 5. Acute exacerbation of CHF Treated with IV Lasix and transitioned to by mouth Lasix prior to discharge 6. Acute hypoxic respiratory failure Patient has now been successfully weaned off supplemental oxygen improving 7. Hypokalemia resolved with repletion 8. Uncontrolled htn Her medications were optimized Disposition: DISCHARGED TO HOME OR SELFCARE Time spent for discharge: 35 minutes Core Measure Documentation - Palliative Care Palliative Care/ Comfort Measures: Not Applicable - Core Measures Any of the following diagnoses?: none Exam - Constitutional Vitals: Temp Pulse Resp BP Pulse Ox 97.6 F 79 20 152/72 95 04/23/16 08:00 04/23/16 08:00 04/23/16 08:00 04/23/16 08:00 04/23/16 08:00 General appearance: Present: no acute distress, well-nourished - EENT Eyes: Present: PERRL ENT: hearing intact, clear oral mucosa - Neck Neck: Present: supple, normal ROM - Respiratory Respiratory effort: normal Respiratory: bilateral: CTA - Cardiovascular Heart Sounds: Present: S1 & S2. Absent: rub, click - Extremities Extremities: pulses symmetrical, No edema Peripheral Pulses: within normal limits - Abdominal General gastrointestinal: Present: soft, non-tender, non-distended, normal bowel sounds Female genitourinary: Present: normal - Integumentary Integumentary: Present: clear, warm, dry - Musculoskeletal Musculoskeletal: gait normal, strength equal bilaterally - Psychiatric Psychiatric: appropriate mood/affect, intact judgment & insight - Neurologic Neurologic: CNII-XII intact, moves all extremities Plan Follow up with: ELISE SOLORZANO MD [Primary Care Provider] - 3-5 Days Prescriptions: amLODIPine [Norvasc] 10 mg PO DAILY #30 tablet Carvedilol [Coreg] 6.25 mg PO BID #60 tablet Ipratropium/Albuterol Sulfate [Combivent Respimat] 1 spray IH QID #1 aer.w.adap ISOSORBIDE MONOnitrate [Imdur ER] 60 mg PO QDAY #30 tablet Levofloxacin [Levaquin] 750 mg PO QDAY #7 tablet Prednisone [predniSONE 10 mg (6-Day Pack, 21 Tabs)] 10 mg PO .TAPER #1 tab.ds.pk Tiotropium [place] [Spiriva Respimat] 4 gm IH DAILY #30 mist.inhal
--- NOTE | 2016-04-23 13:43 | Discharge Summary ---
Providers - Providers Date of Admission: 04/20/16 10:14 Attending physician: CA VELÁZQUEZ MD Primary care physician: ELISE SOLORZANO Hospitalization Condition: Stable Hospital course: 55-year-old woman who presented with acute shortness of breath and hypoxic respiratory failure and 1. Acute exacerbation of asthma/COPD Continue steroids, antibiotics, continue breathing treatments, we'll taper steroid dose today Of note it was previously stated the patient had pneumonia of new chest x-rays negative for pneumonia has been ruled out 2. Gram negative UTI continue abx 3. Hypertension Continue home meds 4. CKD Avoid nephrotoxic agents 5. Acute exacerbation of CHF Continue IV Lasix 6. Acute hypoxic respiratory failure Patient has now been successfully weaned off supplemental oxygen improving 7. Hypokalemia resolved with repletion 8. Uncontrolled htn optimize meds Disposition: DISCHARGED TO HOME OR SELFCARE Time spent for discharge: 35 minutes Core Measure Documentation - Palliative Care Palliative Care/ Comfort Measures: Not Applicable - Core Measures Any of the following diagnoses?: heart failure, none - Heart Failure Discharge Requirements TYLOR/ARB for LVSD if EF <40%: Yes Beta baltazar at discharge: Yes Exam - Constitutional Vitals: Temp Pulse Resp BP Pulse Ox 97.6 F 79 20 152/72 95 04/23/16 08:00 04/23/16 08:00 04/23/16 08:00 04/23/16 08:00 04/23/16 08:00 General appearance: Present: no acute distress, well-nourished - EENT Eyes: Present: PERRL ENT: hearing intact, clear oral mucosa - Neck Neck: Present: supple, normal ROM - Respiratory Respiratory effort: normal Respiratory: bilateral: CTA - Cardiovascular Heart Sounds: Present: S1 & S2. Absent: rub, click - Extremities Extremities: pulses symmetrical, No edema Peripheral Pulses: within normal limits - Abdominal General gastrointestinal: Present: soft, non-tender, non-distended, normal bowel sounds Female genitourinary: Present: normal - Integumentary Integumentary: Present: clear, warm, dry - Musculoskeletal Musculoskeletal: gait normal, strength equal bilaterally - Psychiatric Psychiatric: appropriate mood/affect, intact judgment & insight - Neurologic Neurologic: CNII-XII intact, moves all extremities Plan Follow up with: ELISE SOLORZANO MD [Primary Care Provider] - 3-5 Days Prescriptions: amLODIPine [Norvasc] 10 mg PO DAILY #30 tablet Carvedilol [Coreg] 6.25 mg PO BID #60 tablet ISOSORBIDE MONOnitrate [Imdur ER] 60 mg PO QDAY #30 tablet Levofloxacin [Levaquin] 750 mg PO QDAY #7 tablet Prednisone [predniSONE 10 mg (6-Day Pack, 21 Tabs)] 10 mg PO .TAPER #1 tab.ds.pk
[2016-04-23 18:08] VITALS: BP 151/79
== END 2016-04-23 18:39 | disposition home or self-care (01) | DRG 291 ==
LOC: ED 21:07 → 3A 04-20 10:14 → 4A 04-20 17:15
PROVIDERS: ADMIT Internal Medicine; ATTEND Internal Medicine
DX: I13.0 Hypertensive heart and chronic kidney disease with heart failure and stage 1 through stage 4 chronic kidney disease, or unspecified chronic kidney disease (principal); I50.33 Acute on chronic diastolic (congestive) heart failure; J96.01 Acute respiratory failure with hypoxia; J45.901 Unspecified asthma with (acute) exacerbation; J44.1 Chronic obstructive pulmonary disease with (acute) exacerbation; N30.00 Acute cystitis without hematuria; I25.10 Atherosclerotic heart disease of native coronary artery without angina pectoris; N18.3 Chronic kidney disease, stage 3 (moderate); E78.5 Hyperlipidemia, unspecified; E66.01 Morbid (severe) obesity due to excess calories; G47.30 Sleep apnea, unspecified; M19.90 Unspecified osteoarthritis, unspecified site; T50.995A Adverse effect of other drugs, medicaments and biological substances, initial encounter; E87.6 Hypokalemia; Z79.899 Other long term (current) drug therapy; Z98.890 Other specified postprocedural states; Z87.891 Personal history of nicotine dependence; Z83.3 Family history of diabetes mellitus; Z82.49 Family history of ischemic heart disease and other diseases of the circulatory system; Y92.89 Other specified places as the place of occurrence of the external cause
CPT/HCPCS: 36415; 71020; 80048; 80053; 81001; 84484; 85025; 87076; 87086; 87186; 90686; 93005; 93010; 94640; 94760; 96365; 96372; 96375; 96376; J0456; J1650; J1940; J2920; J2930; J7050

== ENCOUNTER 2016-05-31 16:50 | Emergency (ER) | payer MEDICAID ==
[2016-05-31 18:19] LABS: Basophils % (Auto) 0.6 % (0.0-1.8); Eosinophils % (Auto) 0.9 % (0.0-4.3); Hematocrit 34.3 % (30.3-42.9); Hemoglobin 10.8 gm/dl (10.1-14.3); Mean Corpuscular HGB Conc 32 % (30-34); Mean Corpuscular Volume 76 fl (79-97); Platelet Count 428 K/mm3 (140-440); Red Blood Count 4.49 M/mm3 (3.65-5.03); Red Cell Distribution Width 17.6 % (13.2-15.2)
[2016-05-31 18:20] LABS: Mean Corpuscular Hemoglobin 24 pg (28-32)
[2016-05-31 18:29] LABS: Bacteria,Urine 1+ /HPF (Negative); Bilirubin,Urine NEG (Negative); Blood,Urine NEG (Negative); Ketones,Urine NEG (Negative); Leukocyte Esterase,Urine NEG (Negative); Mucus,Urine FEW /HPF; Nitrite,Urine NEG (Negative); Urobilinogen,Urine < 2.0 mg/dL (<2.0)
[2016-05-31 18:30] LABS: Albumin 3.5 g/dL (3.9-5); Albumin/Globulin Ratio 0.9 %; BUN/Creatinine Ratio 7.69; Bilirubin,Total 0.2 mg/dL (0.1-1.2); Calcium 9.3 mg/dL (8.4-10.2); Chloride 100.4 mmol/L (98-107); Potassium 3.4 mmol/L (3.6-5.0); Total Protein 7.3 g/dL (6.3-8.2)
[2016-05-31 18:35] LABS: Protein,Urine >500 mg/dL (Negative)
[2016-06-01] MEDS ORDERED: ZOFRAN IM ONE (03:04)
[2016-06-01] MEDS ORDERED: CATAPRES ONE (03:04)
[2016-06-01] MEDS ORDERED: MORPHINE IM ONE (03:04)
--- NOTE | 2016-06-01 04:03 | Emergency Department Report ---
HPI - General Chief Complaint: Abdominal Pain Time Seen by Provider: 06/01/16 03:32 - HPI HPI: Room 23 The patient is a 56-year-old female presenting with a chief complaint of right flank/hip pain. The patient states or days ago she developed pain in the right hip initially but it moved up to her right flank. Patient describes the pain as dull and aching in nature. Patient denies abdominal pain. Patient denies nausea vomiting, dysuria or hematuria. Patient denies fever or diarrhea. Patient denies shortness of breath. The patient originally gives her pain a score of 10/10 but since she's been administered pain medication it has decreased to 7/10 Location: [see above] Duration: 4 days Quality: Dull/aching Severity: 10/10, currently 7/10 Modifying factors: [see above] Context: [see above] Mode of transportation: [not driving] ED Past Medical Hx - Past Medical History Hx Hypertension: Yes Hx Congestive Heart Failure: Yes Hx Renal Disease: Yes Hx Asthma: Yes Additional medical history: CAD. HIGH CHOLESTEROL - Surgical History Additional Surgical History: RIGHT Knee surgery - Family History Family history: no significant - Social History Smoking Status: Never Smoker - Medications Home Medications: Home Medications Medication Instructions Recorded Confirmed Last Taken Type Aspirin [Aspirin BABY CHEW TAB] 81 mg PO QHS 12/13/13 04/19/16 11/09/15 History Cyclobenzaprine [Flexeril 10 MG 10 mg PO QHS 12/13/13 04/19/16 Unknown History TAB] Nitroglycerin [Nitrostat] 0.4 mg SL Q5M PRN 12/13/13 04/19/16 Unknown History hydrALAZINE [Apresoline TAB] 100 mg PO TID #90 tab 12/15/13 04/19/16 11/10/15 Rx Fluticasone/Salmeterol [Advair 250 puff PO BID 04/21/15 04/19/16 11/09/15 History Diskus 250-50 mcg] Oxybutynin [Ditropan] 5 mg PO QDAY 04/21/15 04/19/16 11/10/15 History cloNIDine [Catapres] 0.1 mg PO QHS 04/21/15 04/20/16 11/10/15 History cloNIDine [Catapres] 0.2 mg PO QAM 04/21/15 04/20/16 11/09/15 History Montelukast [Singulair] 10 mg PO QPM 04/22/15 04/19/16 11/09/15 History Simvastatin [Zocor TAB] 40 mg PO QHS #30 tablet 04/25/15 04/19/16 11/09/15 Rx Furosemide [Lasix TAB] 40 mg PO QHS 11/10/15 04/19/16 11/09/15 History Potassium Chloride [K-Dur] 20 meq PO QHS 11/10/15 04/19/16 11/09/15 History traMADol [Ultram 50 MG tab] 50 mg PO Q6HR PRN #20 tablet 11/10/15 04/19/16 Unknown Rx Carvedilol [Coreg] 6.25 mg PO BID #60 tablet 04/23/16 Unknown Rx ISOSORBIDE MONOnitrate [Imdur ER] 60 mg PO QDAY #30 tablet 04/23/16 Unknown Rx Ipratropium/Albuterol Sulfate 1 spray IH QID #1 aer.w.adap 04/23/16 Unknown Rx [Combivent Respimat] Levofloxacin [Levaquin] 750 mg PO QDAY #7 tablet 04/23/16 Unknown Rx Prednisone [predniSONE 10 mg 10 mg PO .TAPER #1 tab.ds.pk 04/23/16 Unknown Rx (6-Day Pack, 21 Tabs)] Tiotropium [place] [Spiriva 4 gm IH DAILY #30 mist.inhal 04/23/16 Unknown Rx Respimat] amLODIPine [Norvasc] 10 mg PO DAILY #30 tablet 04/23/16 Unknown Rx Cyclobenzaprine [Flexeril] 10 mg PO TID PRN #14 tablet 06/01/16 Unknown Rx HYDROcodone/APAP 5-325 [[place] 1 - 2 each PO Q6HR PRN #14 tablet 06/01/16 Unknown Rx 5/325] ED Review of Systems ROS: Stated complaint: R SIDE PAIN Other details as noted in HPI Comment: All other systems reviewed and negative Constitutional: denies: chills, fever Eyes: denies: eye pain, eye discharge, vision change ENT: denies: ear pain, throat pain Respiratory: denies: cough, shortness of breath, wheezing Cardiovascular: denies: chest pain, palpitations Endocrine: no symptoms reported Gastrointestinal: denies: abdominal pain, nausea, vomiting Genitourinary: denies: urgency, dysuria, discharge Musculoskeletal: back pain, myalgia Skin: denies: rash, lesions Neurological: denies: headache, weakness, paresthesias Psychiatric: denies: anxiety, depression Hematological/Lymphatic: denies: easy bleeding, easy bruising Physical Exam - Physical Exam Vital Signs: Vital Signs 05/31/16 06/01/16 17:14 01:17 Temperature 97.6 F Pulse Rate 81 82 Respiratory 19 20 Rate Blood Pressure 196/84 Blood Pressure 191/79 [Right] O2 Sat by Pulse 98 100 Oximetry Physical Exam: GENERAL: The patient is well-developed well-nourished lying on stretcher not appearing to be in acute distress HEENT: Normocephalic. Atraumatic. Extraocular motions are intact. Patient has moist mucous membranes. NECK: Supple. Trachea midline CHEST/LUNGS: Clear to auscultation. There is no respiratory distress noted. HEART/CARDIOVASCULAR: Regular. There is no tachycardia. There is no gallop rub or murmur. ABDOMEN: Abdomen is soft, nontender. Patient has normal bowel sounds. There is no abdominal distention. SKIN: There is no rash. There is no edema. There is no diaphoresis. NEURO: The patient is awake, alert, and oriented. The patient is cooperative. The patient has normal speech and gait. MUSCULOSKELETAL: There is pain in the patient's right buttocks sometimes exacerbated by straight leg raise. There is no evidence of acute injury. ED Course Vital Signs 05/31/16 06/01/16 17:14 01:17 Temperature 97.6 F Pulse Rate 81 82 Respiratory 19 20 Rate Blood Pressure 196/84 Blood Pressure 191/79 [Right] O2 Sat by Pulse 98 100 Oximetry ED Medical Decision Making - Lab Data Result diagrams: 05/31/16 17:57 05/31/16 17:57 Laboratory Tests 05/31/16 05/31/16 05/31/16 17:57 17:57 18:00 WBC 10.0 RBC 4.49 Hgb 10.8 Hct 34.3 MCV 76 L MCH 24 L MCHC 32 RDW 17.6 H Plt Count 428 Lymph % (Auto) 13.3 L [place] % (Auto) 7.4 H Eos % (Auto) 0.9 Baso % (Auto) 0.6 Lymph # 1.3 [place] # 0.7 Eos # 0.1 Baso # 0.1 Seg Neutrophils % 77.8 H Seg Neutrophils # 7.8 H POC ABG pH POC ABG pCO2 POC ABG pO2 POC ABG HCO3 POC ABG Total CO2 POC ABG O2 Sat POC ABG Base Excess FiO2 Sodium 141 Potassium 3.4 L Chloride 100.4 Carbon Dioxide 26 Anion Gap 18 BUN 20 H Creatinine 2.6 H Estimated GFR 23 BUN/Creatinine Ratio 7.69 Glucose 111 H Calcium 9.3 Total Bilirubin 0.2 AST 16 ALT 9 Alkaline Phosphatase 120 Total Protein 7.3 Albumin 3.5 L Albumin/Globulin Ratio 0.9 Lipase 17 Urine Color Yellow Urine Turbidity Clear Urine pH 6.0 Ur Specific [place] 1.012 Urine Protein >500 Urine Glucose (UA) 50 Urine Ketones Neg Urine Blood Neg Urine Nitrite Neg Urine Bilirubin Neg Urine Urobilinogen < 2.0 Ur Leukocyte Esterase Neg Urine WBC (Auto) 1.0 Urine RBC (Auto) 1.0 U Epithel Cells (Auto) 2.0 Urine Bacteria (Auto) 1+ Urine Mucus Few 06/01/16 04:13 WBC RBC Hgb Hct MCV MCH MCHC RDW Plt Count Lymph % (Auto) [place] % (Auto) Eos % (Auto) Baso % (Auto) Lymph # [place] # Eos # Baso # Seg Neutrophils % Seg Neutrophils # POC ABG pH 7.592 H POC ABG pCO2 25.6 L POC ABG pO2 147 H POC ABG HCO3 24.7 POC ABG Total CO2 25 POC ABG O2 Sat 100 POC ABG Base Excess 3 FiO2 21 Sodium Potassium Chloride Carbon Dioxide Anion Gap BUN Creatinine Estimated GFR BUN/Creatinine Ratio Glucose Calcium Total Bilirubin AST ALT Alkaline Phosphatase Total Protein Albumin Albumin/Globulin Ratio Lipase Urine Color Urine Turbidity Urine pH Ur Specific [place] Urine Protein Urine Glucose (UA) Urine Ketones Urine Blood Urine Nitrite Urine Bilirubin Urine Urobilinogen Ur Leukocyte Esterase Urine WBC (Auto) Urine RBC (Auto) U Epithel Cells (Auto) Urine Bacteria (Auto) Urine Mucus Laboratory Tests 05/31/16 05/31/16 05/31/16 17:57 17:57 18:00 WBC 10.0 RBC 4.49 Hgb 10.8 Hct 34.3 MCV 76 L MCH 24 L MCHC 32 RDW 17.6 H Plt Count 428 Lymph % (Auto) 13.3 L [place] % (Auto) 7.4 H Eos % (Auto) 0.9 Baso % (Auto) 0.6 Lymph # 1.3 [place] # 0.7 Eos # 0.1 Baso # 0.1 Seg Neutrophils % 77.8 H Seg Neutrophils # 7.8 H POC ABG pH POC ABG pCO2 POC ABG pO2 POC ABG HCO3 POC ABG Total CO2 POC ABG O2 Sat POC ABG Base Excess FiO2 Sodium 141 Potassium 3.4 L Chloride 100.4 Carbon Dioxide 26 Anion Gap 18 BUN 20 H Creatinine 2.6 H Estimated GFR 23 BUN/Creatinine Ratio 7.69 Glucose 111 H Calcium 9.3 Total Bilirubin 0.2 AST 16 ALT 9 Alkaline Phosphatase 120 Total Protein 7.3 Albumin 3.5 L Albumin/Globulin Ratio 0.9 Lipase 17 Urine Color Yellow Urine Turbidity Clear Urine pH 6.0 Ur Specific [place] 1.012 Urine Protein >500 Urine Glucose (UA) 50 Urine Ketones Neg Urine Blood Neg Urine Nitrite Neg Urine Bilirubin Neg Urine Urobilinogen < 2.0 Ur Leukocyte Esterase Neg Urine WBC (Auto) 1.0 Urine RBC (Auto) 1.0 U Epithel Cells (Auto) 2.0 Urine Bacteria (Auto) 1+ Urine Mucus Few 06/01/16 04:13 WBC RBC Hgb Hct MCV MCH MCHC RDW Plt Count Lymph % (Auto) [place] % (Auto) Eos % (Auto) Baso % (Auto) Lymph # [place] # Eos # Baso # Seg Neutrophils % Seg Neutrophils # POC ABG pH 7.592 H POC ABG pCO2 25.6 L POC ABG pO2 147 H POC ABG HCO3 24.7 POC ABG Total CO2 25 POC ABG O2 Sat 100 POC ABG Base Excess 3 FiO2 21 Sodium Potassium Chloride Carbon Dioxide Anion Gap BUN Creatinine Estimated GFR BUN/Creatinine Ratio Glucose Calcium Total Bilirubin AST ALT Alkaline Phosphatase Total Protein Albumin Albumin/Globulin Ratio Lipase Urine Color Urine Turbidity Urine pH Ur Specific [place] Urine Protein Urine Glucose (UA) Urine Ketones Urine Blood Urine Nitrite Urine Bilirubin Urine Urobilinogen Ur Leukocyte Esterase Urine WBC (Auto) Urine RBC (Auto) U Epithel Cells (Auto) Urine Bacteria (Auto) Urine Mucus - Radiology Data Radiology results: report reviewed (CT abdomen and pelvis), image reviewed (CT abdomen and pelvis) CT abdomen and pelvis (read by radiologist)-there is no evidence of intestinal urinary tract obstruction. Moderate diverticulosis of the colon. Large adrenal glands with 2 cm mass on the left adrenal gland. Adenomas suspected. This has not changed since prior study (April 2015). Further workup may be required - Differential Diagnosis renal colic, sciatica, pyelonephritis, lumbar radiculopathy Critical care attestation.: If time is entered above; I have spent that time in minutes in the direct care of this critically ill patient, excluding procedure time. ED Disposition Clinical Impression: Chronic kidney disease, stage III (moderate), Lumbar radiculopathy, right, Mass of both adrenal glands Disposition: DISCHARGED TO HOME OR SELFCARE Is pt being admited?: No Does the pt Need Aspirin: No Condition: Stable Instructions: Abdominal Pain (ED) Additional Instructions: Return to the emergency department immediately should you develop worsening symptoms, fever, inability to tolerate food or liquid or any other concerns. Prescriptions: Cyclobenzaprine [Flexeril] 10 mg PO TID PRN #14 tablet PRN Reason: Muscle Spasm HYDROcodone/APAP 5-325 [[place] 5/325] 1 - 2 each PO Q6HR PRN #14 tablet PRN Reason: Pain Referrals: DR LEVI [Other] - 3-5 Days LETITIA IZAGUIRRE MD [Staff Physician] - 3-5 Days (Dr. Izaguirre is an orthopedic surgeon. Please follow up with him for further evaluation) Time of Disposition: 04:27
--- NOTE | 2016-06-01 04:10 | Cat Scan Report ---
FINAL REPORT PROCEDURE: CT ABDOMEN PELVIS WO CON TECHNIQUE: Computerized axial tomography of the abdomen and pelvis was performed without intravenous contrast. This study is performed without intravascular contrast material and its sensitivity for abdominal and pelvic pathology, including neoplasms, inflammation, abscess, free fluid, thrombosis, arterial dissection and infarction, is reduced compared with a contrast enhanced study. HISTORY: right-sided abdominal pain COMPARISON: No prior studies are available for comparison. FINDINGS: Visualized lower thorax: No significant abnormality. Liver: Normal size and attenuation. Spleen: Normal size and attenuation. Gallbladder and biliary system: Normal. Pancreas: Normal. Adrenals: There is hypertrophy of the adrenal glands. On the left there is a 2 centimeter area of hypoattenuation which may represent an adenoma. There is a small calcification within the left adrenal gland.. Kidneys: Both kidneys have normal size. No hydronephrosis. No renal stones or masses.. GI tract: The stomach is normal. The small bowel has a normal caliber. No obstruction, ileus or enteritis. Cecum is normal. There is moderate diverticular change in the colon. No inflammatory changes seen.. Lymph nodes and mesentery: Normal. Vasculature: Moderate atherosclerosis of the aorta and branching vessels. Bladder: Normal. Reproductive organs: Normal. Peritoneum: No free fluid. Musculoskeletal structures: No significant abnormality. Other: None. IMPRESSION: There is no evidence intestinal urinary tract obstruction. Moderate diverticulosis of the colon. Enlarged adrenal glands with 2 centimeter mass on the left adrenal gland. Adenoma is suspected. This has not changed since prior study. Further workup may be required..
[2016-06-01 04:22] LABS: ISTAT Base Excess 3; ISTAT DEVICE 0; ISTAT HCO3 24.7; ISTAT PCO2 25.6 (35-45); ISTAT PH 7.592 (7.35-7.45); ISTAT PO2 147 (80-105); ISTAT SO2 100; ISTAT TCO2 25
[2016-06-01 04:34] VITALS: BP 149/65
[2016-06-01] MEDS ORDERED: CATAPRES PO ONE (05:31)
== END 2016-06-01 04:45 | disposition home or self-care (01) ==
LOC: ED 16:50
DX: I12.9 Hypertensive chronic kidney disease with stage 1 through stage 4 chronic kidney disease, or unspecified chronic kidney disease (principal); N18.3 Chronic kidney disease, stage 3 (moderate); E27.9 Disorder of adrenal gland, unspecified; I50.9 Heart failure, unspecified; J45.909 Unspecified asthma, uncomplicated; E78.00 Pure hypercholesterolemia, unspecified; M54.16 Radiculopathy, lumbar region; Z79.82 Long term (current) use of aspirin
CPT/HCPCS: 36415; 74176; 80053; 81001; 82803; 83690; 85025; 96372; 99284; J2270; J2405

== ENCOUNTER 2017-12-09 09:49 | Outpatient (CLI) | payer MEDICAID ==
--- NOTE | 2017-12-09 10:29 | Cat Scan Report ---
CT CHEST WITHOUT CONTRAST: HISTORY: Chronic shortness of breath. COMPARISON: none. TECHNIQUE: Helical CT in 1.25mm intervals without IV contrast. Sagittal and coronal reformatted images. FINDINGS: Thyroid gland: The thyroid gland is enlarged and heterogeneous suggesting a multinodular goiter. There is mild mass effect on the upper trachea although it remains patent. Tracheobronchial tree: Normal. Esophagus: Normal. Heart: Mild cardiomegaly. Pericardium: Normal. Mediastinum: Normal. Lung [place]: Normal. No parenchymal lung disease is detected. Pleural Spaces: Normal. Musculoskeletal: Mild thoracic spondylosis. IMPRESSION: Mild cardiomegaly. Normal lungs. Diffuse thyroid enlargement suggestive of a multinodular goiter. There is mild mass effect on the upper trachea. Correlate with the patient.
== END 2017-12-09 09:50 | disposition home or self-care (01) ==
LOC: CT 09:49
PROVIDERS: ATTEND Specialist
DX: I51.7 Cardiomegaly (principal); M47.894 Other spondylosis, thoracic region; J44.1 Chronic obstructive pulmonary disease with (acute) exacerbation; I12.9 Hypertensive chronic kidney disease with stage 1 through stage 4 chronic kidney disease, or unspecified chronic kidney disease; N18.3 Chronic kidney disease, stage 3 (moderate)
CPT/HCPCS: 71250